=== PATIENT | male | born 1945 | race Caucasian/White ===

== ENCOUNTER 2024-06-06 16:24 | Emergency (ER) | payer MEDICARE, OTHER, SELFPAY ==
[2024-06-06 16:27] VITALS: BP 157/108
[2024-06-06 17:00] LABS: % Basophils 0.2 % (0-2); % Eosinophils 0.4 % (0-6); % Immature Granulocytes 0.3 % (0-0.5); % Lymphocytes 13.5 % (20.5-51.1); % Monocytes 8.5 % (1.7-9.3); % Neutrophils 77.1 % (42.2-75.2); Absolute Eosinophils 0.1 10^3/uL (0-0.7); Absolute Immature Granulocytes 0.1 10^3/uL (0-0.05); Absolute Monocytes 1.3 10^3/uL (0.1-0.6); Absolute Neutrophils 11.3 10^3/uL (1.4-6.5); Hemoglobin 17.6 g/dL (13.0-18.0); Mean Corp Hgb Conc. 35.9 g/dL (33.0-37.0); Mean Corpuscular Hgb 31.3 pg (27.0-31.0); Mean Corpuscular Volume 87.2 fL (80.0-94.0); Mean Platelet Volume 11.3 fL (7.4-10.4); Nucleated Red Blood Cells % 0 % (-); Platelet Count 254 10^3/uL (130-400); Red Blood Cell Count 5.62 10^6/uL (4.70-6.10); Red Cell Dist. Width 12.3 % (11.5-14.5); White Blood Cell Count 14.6 10^3/uL (4.8-10.8)
[2024-06-06 17:18] LABS: ALT (SGPT) 24 U/L (0-50); AST (SGOT) 26 U/L (17-59); Albumin 4.6 g/dl (3.5-5.0); Alkaline Phosphatase 37 U/L (38-126); Blood Urea Nitrogen 35 mg/dl (9-20); Calcium 9.8 mg/dl (8.4-10.2); Carbon Dioxide 34 mmol/L (22-30); Chloride 94 mmol/L (98-107); Glucose 149 mg/dl (70-99); Potassium 3.9 mmol/L (3.5-5.1); Sodium 137 mmol/L (135-145); Total Bilirubin 1.1 mg/dl (0.2-1.3); Total Protein 7.5 g/dl (6.3-8.2); eGFR 56.93
[2024-06-06 17:53] VITALS: BP 137/98
[2024-06-06 23:16] VITALS: BP 144/100
[2024-06-06 23:25] VITALS: BP 148/92
[2024-06-06 23:30] VITALS: BP 149/115
--- NOTE | 2024-06-06 23:45 | ED.GENMED ---
History of Present Illness
<Gui Garza DO, Resident - Last Filed: 06/07/24 01:03>
General
Chief Complaint: Headache
Source: patient, records and family
Time Seen by Provider: 06/06/24 23:22
History of Present Illness
History of Present Illness:
78-year-old male past medical history of dementia�untreated, previous hep C, agent orange exposure presents for severe headache, memory difficulties, blurry vision, not sleeping, difficulty ambulating, noise sensitivity, light sensitivity.
Constellation of symptoms started after patient had a fall last May 10. Patient lives alone, reports he had an unwitnessed fall he struck his head on the right temporal area. Was evaluated at [facility], per family. CT head demonstrated no
bleed and was informed his memory difficulties are likely from his chronic dementia. Patient reports his headache has never resolved and has progressively gotten worse, he describes the headache as bandlike across bilateral frontal bones and in the
posterior neck. Patient takes oxycodone chronically, for his 'knees and elbows' follows pain management who recently started to down titrate his oxycodone. Patient reports oxycodone does not resolve his headache.
Review of Systems
<Gui Garza DO, Resident - Last Filed: 06/07/24 01:03>
Review of Systems
Constitutional: Reports sleep disturbance; Denies fever
Respiratory: Reports no symptoms
Cardiac: Reports no symptoms
ABD/GI: Reports nausea and vomiting; Denies abdominal pain or diarrhea
: Reports no symptoms
Musculoskeletal: Reports neck pain
Neurological: Reports headache
Phy Exam
<Gui Garza DO, Resident - Last Filed: 06/07/24 01:03>
General Physical Exam
General Presentation: well appearing and no apparent distress
Cardiovascular Exam
Cardiovascular Exam: regular rate/rhythm, no edema and no murmur
Pulmonary Exam
Pulmonary Exam: lungs clear, no respiratory distress, no crackles and no wheezing
Gastrointestinal Exam
Gastrointestinal Exam: non tender, soft and non distended
Neurological Exam
Neurological Exam: alert, oriented x3, CN II-XII intact, no motor deficits, no sensory deficits and other (Difficulty with finger-nose alternating testing. Patient does have a tremor)
Course
<Gui Garza DO, Resident - Last Filed: 06/07/24 01:03>
Orders/Labs/Results
Orders:
Orders
06/06/24 16:32
Electrocardiogram (*1) Urgent
Reason for Study: Abdominal Pain
EKG- Treatment ONCE
06/06/24 16:34
CT Head W/o Iv Contrast Urgent
Comment:
Reason For Exam: fall, maxwell, blurry vision
06/06/24 16:43
Complete Blood Count/With Diff Urgent
Comprehensive Metabolic Panel Urgent
06/06/24 23:52
Prochlorperazine [Compazine] 10 mg PO NOW STA
06/06/24 23:54
COVID-19 Antigen Urgent
Source: Nasal Swab
Influenza A+B Rapid Molecular Urgent
JAIR Source: Nasal Swab
Specimen Description:
06/07/24 00:00
Case Management Consult ONCE
Case Management Consult: VN/Home Care
Requested By:: PHYSICIAN
Comment: Home physical therapy, fall month ago reports not moving, has no ambulatory devices
Abnormal Lab Results
06/06/24
16:43
WBC 14.6 H 10^3/uL
(4.8-10.8)
MCH 31.3 H pg
(27.0-31.0)
MPV 11.3 H fL
(7.4-10.4)
Abs Immat Gran (auto) 0.1 H 10^3/uL
(0-0.05)
Absolute Neuts (auto) 11.3 H 10^3/uL
(1.4-6.5)
Absolute Monos (auto) 1.3 H 10^3/uL
(0.1-0.6)
Neutrophils % 77.1 H %
(42.2-75.2)
Lymphocytes % 13.5 L %
(20.5-51.1)
Chloride 94 L mmol/L
(98-107)
Carbon Dioxide 34 H mmol/L
(22-30)
BUN 35 H mg/dl
(9-20)
Glucose 149 H mg/dl
(70-99)
Alkaline Phosphatase 37 L U/L
(38-126)
06/06/24 16:43
06/06/24 16:43
Vital Signs
Initial and Last Documented VS:
Initial Vital Signs
Temp
98.2 F
06/06/24 16:26
Last Documented Vital Signs
Temp Pulse Resp BP Pulse Ox
98.2 F 88 10 149/115 96
06/06/24 16:26 06/06/24 23:30 06/06/24 23:30 06/06/24 23:30 06/06/24 23:30
<Opal Blackburn, DO - Last Filed: 06/07/24 00:33>
Orders/Labs/Results
Orders:
Orders
06/06/24 16:32
Electrocardiogram (*1) Urgent
Reason for Study: Abdominal Pain
EKG- Treatment ONCE
06/06/24 16:34
CT Head W/o Iv Contrast Urgent
Comment:
Reason For Exam: fall, maxwell, blurry vision
06/06/24 16:43
Complete Blood Count/With Diff Urgent
Comprehensive Metabolic Panel Urgent
06/06/24 23:52
Prochlorperazine [Compazine] 10 mg PO NOW STA
06/06/24 23:54
COVID-19 Antigen Urgent
Source: Nasal Swab
Influenza A+B Rapid Molecular Urgent
JAIR Source: Nasal Swab
Specimen Description:
06/07/24 00:00
Case Management Consult ONCE
Case Management Consult: VN/Home Care
Requested By:: PHYSICIAN
Comment: Home physical therapy, fall month ago reports not moving, has no ambulatory devices
Abnormal Lab Results
06/06/24
16:43
WBC 14.6 H 10^3/uL
(4.8-10.8)
MCH 31.3 H pg
(27.0-31.0)
MPV 11.3 H fL
(7.4-10.4)
Abs Immat Gran (auto) 0.1 H 10^3/uL
(0-0.05)
Absolute Neuts (auto) 11.3 H 10^3/uL
(1.4-6.5)
Absolute Monos (auto) 1.3 H 10^3/uL
(0.1-0.6)
Neutrophils % 77.1 H %
(42.2-75.2)
Lymphocytes % 13.5 L %
(20.5-51.1)
Chloride 94 L mmol/L
(98-107)
Carbon Dioxide 34 H mmol/L
(22-30)
BUN 35 H mg/dl
(9-20)
Glucose 149 H mg/dl
(70-99)
Alkaline Phosphatase 37 L U/L
(38-126)
06/06/24 16:43
06/06/24 16:43
Vital Signs
Initial and Last Documented VS:
Initial Vital Signs
Temp
98.2 F
06/06/24 16:26
Last Documented Vital Signs
Temp Pulse Resp BP Pulse Ox
98.2 F 88 10 149/115 96
06/06/24 16:26 06/06/24 23:30 06/06/24 23:30 06/06/24 23:30 06/06/24 23:30
<Gui Garza DO, Resident - Last Filed: 06/07/24 01:03>
MDM/Problems Addressed
Differential Diagnosis Includes:
Postconcussion headache, tension headache, medication rebound headache, concussion
MDM/Problems Addressed:
78 male presents for progressive worsening headache since he had a fall approximately 1 month prior on May 10
Patient was evaluated at [facility], they did a head CT and reportedly there is no bleed present
Since his fall patient has been endorsing constellation of symptoms including severe headache, blurry vision, not sleeping, difficulty with gait, noise and light sensitivity
Reviewed PDMP, patient gets chronic opioids for his 'knees and elbows' patient's pain medications were recently started on a down titration of dose
Patient reports he has seen his pain management doctor recently, also reports he has a follow-up with pain management doctor in the future as well as a follow-up with neurology in July
CT head noncontrast ordered which demonstrated no evidence for acute intracranial hemorrhage or transcortical infarct, moderate white matter leukoaraiosis in frontal and parietal lobes with mild diffuse cerebellar and cerebral volume loss
Head CT consistent with known dementia, no brain bleed or stroke present
In emergency department patient slightly hypertensive 149/115, rest of vitals within normal limits
Labs demonstrate leukocytosis 14.6, no reported fevers, no chills, no cough, no urinary symptoms
On exam, patient completely alert and oriented, knew where he was, knew the year and knew who the current president is
Abdomen benign, heart and lungs normal. No focal neurologic deficits on exam, full sensation, equal strength in upper and lower extremities. Cranial nerves fully intact
Unsure etiology of headache, likely postconcussion headache syndrome
Will trial Compazine by mouth to see if it relieves headache, if successful will prescribe patient prescription of Compazine
Patient reports decreased and nausea with Compazine, slight decrease in headache but not fully resolved
Will prescribe patient 7-day course of Compazine by mouth, encourage follow-up with PCP for refill
assistant general manager consult for home PT-case briefer will call patient after discharge and arrange for services as required
Will check COVID and flu, COVID and flu negative
Patient is stable for discharge encourage follow-up with neurology, PCP, and pain management
Informed patient case briefer will call and visit him at home to arrange for services
<Gui Garza DO, Resident - Last Filed: 06/07/24 01:03>
*Critical Care Note
Total Time (30-74mins, 75-104mins- exclusive of procedures): Not Applicable
ED Attending Note
<Gui Garza DO, Resident - Last Filed: 06/07/24 01:03>
-
Portions of this chart may have been created with voice recognition software.� Occasional wrong word or��sound alike� substitutions may have occurred due to the inherent limitations of voice recognition software.
<Opal Blackburn DO - Last Filed: 06/07/24 00:33>
ED Attending Note
Patient seen and examined by attending physician: Yes
I performed a history and physical exam of patient and discussed management with resident, I reviewed resident's note and agree with documented findings and plan of care.: Yes
ED Attending Note:
78-year-old gentleman who resides at home alone, independently. He has history of hypertension, history of chronic orthopedic pain, follows with pain management and chronically maintained on oxycodone.
1 month ago suffered a slip and fall striking his head and since then has been complaining of persistent headache, unsteady gait but no recurrent falls. Evaluated at [facility] 1 month ago with reported unremarkable CT of the head.
He has followed up with pain management since the fall but admits to not discussing his ongoing headache with painter helper.
He has an appointment with neurology, Dr. Roblero in 1 month. Has been seen by Dr. Roblero a number of years ago.
Other than his usual oxycodone, he has not been taking anything else for pain.
He has not had a fever nor chills, admits to intermittent nausea but has had no vomiting.
Admits to unsteady gait but has had no recurrent falls, has been able to move about his house but states he has had difficulty getting out of the house. His family has brought him to the ED tonight.
78-year-old gentleman appears his stated age, awake and alert, oriented x 3, appears in no acute distress. Mildly hypertensive. Afebrile.
HEENT: Pupils are equal and reactive to light, extraocular muscles intact. Oral mucosa is moist.
Neck is supple, no midline bony tenderness. Mild paracervical muscle spasm on the right. No meningismus.
Neuro: Awake alert and oriented x 3. No focal neurodeficits. Motor strength is 5/5 bilaterally. Gross sensation is intact. DTR symmetric.
CT of the head shows no acute nor chronic appearing traumatic findings. Note of moderate white matter changes as well as mild diffuse volume loss.
Labs show mildly elevated white blood cell count. Creatinine of 1.3. No old labs to compare.
I suspect post concussion headache, postconcussion syndrome. Other consideration is cervalgia related headache.
There was no evidence of neurologic deficit and reassuring that patient has not suffered recurrent falls.
No evidence of infectious process.
Will trial an oral dose of Compazine and if effective we will provide prescription for as needed Compazine.
I recommended physical therapy for cervalgia related headache. Patient states he has difficulty getting out of the house, family who are currently at bedside are reportedly unable to assist with patient's transport.
Therefore case management consult has been placed to assist with home health care nurse visit, home safety evaluation, home PT/OT evaluation.
Discharge Plan
Departure
Patient Disposition: Home (Routine Discharge)
Date of Disposition: 06/07/24
Time of Disposition: 00:58
Patient with high blood pressure during this ER visit?: Yes
Condition: Good
Discharge Problem:
Post-concussion headache
Instructions: Headache, Adult (DC), Post-Concussion Syndrome ED, BLOOD PRESSURE
Prescriptions:
New
prochlorperazine maleate [Compazine] 10 mg tablet
10 mg PO TID PRN (Reason: Headache) 1 Days Qty: 21 0RF
Rx Instructions:
Used by mouth up to 3 times a day as needed for headache
Referrals:
Bennie Forte MD [Family Provider] - Call in 1-3 days for appt
Activity Restrictions/Additional Instructions:
Please call your primary care physician in 1 to 3 days for a follow-up appointment
Please keep your follow-up appointment with neurology and pain management, follow-up as appropriate
Please take Compazine 3 times a day by mouth as needed for headache, please see your primary care provider for refill
Please use Motrin, Compazine and melatonin as needed to help you sleep, please follow-up with your primary care physician regarding this if these do not help
Referral for case briefer was placed, they will call you and schedule a follow-up time when able come out to your house and evaluate you for home physical therapy and or any other services required
Please return to the emergency department if you develop any fever, somnolence, severe headache, arm and leg weakness, facial droop or slurred speech or with any concerns
Interventions
Interventions:
*Risk Screen - Suicide Last Done: 06/06/24 16:27
*General Assessment Last Done: 06/06/24 16:27
*Neglect/Abuse Screening Last Done: 06/06/24 16:27
ED- Fall Risk Assessment Last Done: 06/06/24 23:56
*ED COVID-19 Vaccine History Last Done: 06/06/24 23:56
ED- Neurological Assessment Last Done: 06/06/24 23:56
Discharge Date and Time
Print Language: ICELANDIC
[2024-06-07] VITALS: BP 163/109
[2024-06-07] MEDS: COMPAZINE 10 MG PO (00:09)
[2024-06-07 00:13] VITALS: BP 148/104
[2024-06-07 00:30] VITALS: BP 140/97
[2024-06-07 00:36] LABS: COVID-19 Antigen Negative (Negative)
--- NOTE | 2024-06-07 09:39 | CM ---
Addendum entered by Vonda Valdez RN 06/07/24 09:50:
CM spoke with patient's daughter who stated she would prefer [facility]. [facility] has been out and daughter would prefer another agency. CM referred patient to [facility] surveillance officer.
Original Note:
CM reviewed medical records. CM left message to discuss home care options. CM will await call back.
--- NOTE | 2024-06-07 10:10 | VNURNOTE ---
Rec'ed info about referral, pt already left ER. [facility] Liaison spoke with patient's daughter Cherelle. She stated pt is current with HH through [facility]. She thinks he has a few more visits with their home PT. Advised daughter she can either stay
with [facility] or if she wants to change agencies, she would need to call [facility] and cancel them. She verbalized understanding and will call this author back. This author will wait to hear daughter's decision before placing referral.
Daughter aware.
--- NOTE | 2024-06-07 10:28 | VNURNOTE ---
Rec'ed return call from daughter Cherelle. She chooses to continue services with [facility]
== END 2024-06-07 01:26 | disposition home or self-care (01) ==
LOC: EMR 16:24
PROVIDERS: Emergency Medicine; EMERGENCY PHYSICIAN Emergency Medicine; FAMILY PHYSICIAN Internal Medicine Geriatric Medicine
DX: G44.309 Post-traumatic headache, unspecified, not intractable (principal); F03.90 Unspecified dementia, unspecified severity, without behavioral disturbance, psychotic disturbance, mood disturbance, and anxiety; I10 Essential (primary) hypertension; Z60.2 Problems related to living alone; Z86.19 Personal history of other infectious and parasitic diseases
CPT/HCPCS: 99284; 70450; 80053; 85025; 87502; 87811; 93005